=== PATIENT | male | born 1985 | race Caucasian/White ===

== ENCOUNTER → 2023-09-09 | Emergency (ER) | payer BC ==
[~2023-09-09] VITALS: Ht 170.2 cm; Wt 81.8 kg
[2023-09-09 16:56] VITALS: TEMP 97.3
[2023-09-09 17:35] LABS: BASOPHILS % (AUTO) 0.5 % (0-1); EOSINOPHILS # (AUTO) 0.1 X10'3 (0-0.9); EOSINOPHILS % (AUTO) 0.6 % (0-6); HEMATOCRIT 45.9 % (42.0-52.0); HEMOGLOBIN 15.2 g/dl (14.0-17.9); LYMPHOCYTES # (AUTO) 2.2 X10'3 (1.1-4.8); LYMPHOCYTES % (AUTO) 21.6 % (21-51); MEAN CORPUSCULAR HEMOGLOBIN 28.7 PG (27.0-31.0); MEAN PLATELET VOLUME 8.1 FL (7.4-10.4); MONOCYTES # (AUTO) 0.6 X10'3 (0-0.9); MONOCYTES % (AUTO) 5.4 % (2-12); NEUTROPHILS # (AUTO) 7.3 X10'3 (1.8-7.7); NEUTROPHILS % (AUTO) 71.9 % (42-75); PLATELET COUNT 306 X10'3 (140-440); RED BLOOD COUNT 5.28 X10'6 (4.70-6.10); RED CELL DISTRIBUTION WIDTH 14.5 % (11.5-14.5); WHITE BLOOD COUNT 10.2 X10'3 (4.5-11.0)
[2023-09-09 17:56] LABS: ALBUMIN 3.7 G/DL (3.4-5.0); ANION GAP 11 (8-16); BLOOD UREA NITROGEN 11 MG/DL (7-18); BUN/CREATININE RATIO 12.6 (10.0-20.0); CALCIUM 9.1 MG/DL (8.5-10.1); CHLORIDE 101 MMOL/L (99-107); CREATININE 0.87 MG/DL (0.60-1.10); GLUCOSE 184 MG/DL (70-104); MAGNESIUM 1.7 MG/DL (1.5-2.4); POTASSIUM 3.6 MMOL/L (3.5-5.1); PRO BRAIN NATRIURETIC PEPTIDE 91 PG/ML (0-125); SODIUM 142 MMOL/L (135-145); TOTAL CARBON DIOXIDE 30.5 MMOL/L (24-32); eCRCL 106 ML/MIN; eGFR > 90 ML/MIN
[2023-09-09 21:50] VITALS: BP 141/94; PULSE 64; RESP 16; O2SAT 97
== END | disposition home or self-care (01) ==
LOC: ER 16:35
DX: R55 Syncope and collapse (principal); E10.9 Type 1 diabetes mellitus without complications
CPT/HCPCS: 36415; 70450; 71045; 80048; 82948; 83735; 83880; 84484; 85025; 93005; 99285